=== PATIENT | female | born 2000 | race Caucasian/White ===

== ENCOUNTER 2021-02-26 07:39 | Outpatient (CLI) | payer BC ==
--- NOTE | 2021-02-26 10:20 | Ultrasound Report ---
PROCEDURE: Abdomen Complete INDICATIONS: EPIGASTRIC PAIN TECHNIQUE: Real-time scanning was performed of the abdominal and retroperitoneal organs, with image documentatio n. COMPARISON: None. FINDINGS: Liver: The liver demonstrates normal size. The liver demonstrates mildly increased echogenicity, wh ich limits ultrasound sensitivity for detection of masses. Gallbladder: No gallstones or significant sludge can be seen. The gallbladder wall does not appear th ickened. There is no specific pericholecystic fluid. The sonographic Valencia's sign is negative. Biliary ducts: Intrahepatic bile ducts are non-dilated. Extrahepatic bile duct caliber measures 4 m m. Normal is 6-7 mm or less in diameter, or 10 mm or less post-cholecystectomy. Pancreas: Visualized portions of the pancreas are sonographically normal. Spleen: Spleen is normal in size and homogeneous in echotexture. Kidneys: Kidneys are normal in size and echotexture. Right kidney measures 11 cm long; left kidney measures 10 cm long. No hydronephrosis or nephrolithiasis. No solid masses. Aorta: Visualized aorta is normal in caliber at less than 3 cm. Iliacs: Proximal common iliac arteries are normal in caliber at less than 2.5 cm. IVC: Intrahepatic inferior vena cava is patent. Miscellaneous: No free abdominal fluid. IMPRESSION: The gallbladder demonstrates a normal sonographic appearance. No biliary dilatation is seen. Increased liver echogenicity is seen. This is nonspecific, yet it is most commonly attributed to fatt y infiltration. Reviewed by: Chadwick Worthy MD on 02/26/2021 9:19 AM HENRRY Approved by: Chadwick Worthy MD on 02/26/2021 9:19 AM HENRRY Station ID: [id number]
== END 2021-02-26 07:40 | disposition home or self-care (01) ==
LOC: DI 07:39
PROVIDERS: ATTEND Physician Assistant Medical
DX: R10.13 Epigastric pain (principal); R11.2 Nausea with vomiting, unspecified

== ENCOUNTER 2023-11-17 23:11 | Emergency (ER) | payer BC, MEDICAID ==
--- NOTE | 2023-11-17 23:22 | ED Physician Documentation ---
PD HPI HEENT - Stated complaint Stated Complaint: RT EAR PX - Chief complaint Chief Complaint: Heent - History obtained from History obtained from: Patient, Family - Additional information Additional information: The patient comes to the emergency department chief complaint of right ear pain for the last few days but worse today. The patient states it was so bad she had to leave work. No fevers or chills. No upper respiratory symptoms otherwise. She has a longstanding history of recurrent ear infections and had tympanostomy tubes when she was younger. The patient denies any drainage from her ear. She states she has a swollen "bump" behind her ear and feels some extension the pain to just anterior to her ear as well. No other complaints at this time. PD PAST MEDICAL HISTORY - Past Medical History Past Medical History: Yes - Past Surgical History Past Surgical History: No - Present Medications Home Medications: Ambulatory Orders Medication Instructions Recorded Confirmed Amoxicillin 500 mg PO TID 7 Days #21 cap 11/17/23 HYDROcod/ACETAM 5/325 [[place] 5/325] 1 - 2 tablet PO Q6H PRN #5 tablet 11/17/23 - Allergies Allergies/Adverse Reactions: Allergies Allergy/AdvReac Type Severity Reaction Status Date / Time diphenhydramine Allergy Hallucinati Verified 11/17/23 23:13 [From Benadryl] ons - Social History Does the pt smoke?: No Smoking Status: Never smoker Does the pt drink ETOH?: No Does the pt have substance abuse?: No - Immunizations Immunizations are current?: Yes - POLST Patient has POLST: No PD ED PE NORMAL - Vitals Vital signs reviewed: Yes - General General: Alert and oriented X 3, No acute distress, Well developed/nourished, Other (The patient is tearful but otherwise in no apparent distress.) - HEENT HEENT: Atraumatic, PERRL, EOMI, Moist mucous membranes, Other (Left tympanic membrane normal. Right ear exam With partially obscured TM secondary to cerumen, but visible portion is erythematous and dull.) - Respiratory Respiratory: No respiratory distress - Derm Derm: Warm and dry - Extremities Extremities: No deformity - Neuro Neuro: Alert and oriented X 3 - Psych Psych: Normal mood, Normal affect Results - Vitals Vitals: Vital Signs - 24 hr 11/17/23 23:13 Temperature 36.8 C Heart Rate 60 Respiratory 16 Rate Blood Pressure 150/90 H O2 Saturation 100 Oxygen O2 Source Room air PD Medical Decision Making - ED course Complexity details: considered differential, d/w patient ED course: The patient had a partial obscuring of her TM secondary to cerumen, but given her history and her current symptoms, I feel she should be treated as acute otitis media. She was given first dose of amoxicillin here in the emergency department, as well as dose of hydrocodone. Prescription for the same was sent to the pharmacy of choice. We have discussed home management of symptoms as well as usual indications for return. Departure - Departure Disposition: Home, Self Care Clinical Impression: Acute otitis media Qualifiers: Otitis media type: suppurative Laterality: right Recurrence: not specified as recurrent Spontaneous tympanic membrane rupture: without spontaneous rupture Qualified Code(s): H66.001 - Acute suppurative otitis media without spontaneous rupture of ear drum, right ear Condition: Stable Instructions: ED Otitis Media Acute Adult Prescriptions: Amoxicillin 500 mg PO TID 7 Days #21 cap HYDROcod/ACETAM 5/325 [[place] 5/325] 1 - 2 tablet PO Q6H PRN #5 tablet PRN Reason: Pain Comments: You have been given first dose of antibiotics tonight and a prescription for the same has been electronically transmitted to the [facility] pharmacy in [place]. Please pick these up in the morning and take all of the antibiotics, as directed, until the course is complete. Forms: PCP List, Activity restrictions
[2023-11-17 23:24] VITALS: BP 150/90; O2SAT 100
[2023-11-17] MEDS: AMOXICILLIN 250 MG CAPSULE PO STA (23:32)
[2023-11-17] MEDS: HYDROcod/ACETAM 5/325 MG TABLET PO STA (23:32)
== END 2023-11-17 23:35 | disposition home or self-care (01) ==
LOC: ED 23:11
DX: H66.001 Acute suppurative otitis media without spontaneous rupture of ear drum, right ear (principal)
CPT/HCPCS: 99282; 99283; A9270

== ENCOUNTER 2023-12-16 09:16 | Emergency (ER) | payer MEDICAID ==
[2023-12-16 09:59] VITALS: BP 119/77; O2SAT 100
--- NOTE | 2023-12-16 10:18 | XRAY Report ---
PROCEDURE: Chest 2V INDICATIONS: cough TECHNIQUE: 2 views of the chest were acquired. COMPARISON: None. FINDINGS: Surgical changes and devices: None. Lungs and pleura: No pleural effusions or pneumothorax. Lungs are clear. Mediastinum: Mediastinal contours appear normal. Heart size is normal. Bones and chest wall: No suspicious bony lesions. Overlying soft tissues appear unremarkable. IMPRESSION: No acute cardiopulmonary process. Reviewed by: Karen Rodriguez MD on 12/16/2023 10:17 AM PDT Approved by: Karen Rodriguez MD on 12/16/2023 10:17 AM PDT Station ID: [id number]
== END 2023-12-16 11:11 | disposition left against medical advice (07) ==
LOC: ED 09:16
DX: Z53.21 Procedure and treatment not carried out due to patient leaving prior to being seen by health care provider (principal)

== ENCOUNTER 2023-12-19 19:31 | Emergency (ER) | payer MEDICAID ==
[2023-12-19 19:54] VITALS: O2SAT 98
[2023-12-19 20:30] VITALS: BP 161/10
--- NOTE | 2023-12-19 20:48 | ED Physician Documentation ---
History of Present Illness - Stated complaint Stated Complaint: ASTHMA ATTACK - Chief complaint Chief Complaint: Resp - History obtained from History obtained from: Patient - Additonal information Additional information: 23yF with pmh mild intermittent asthma p/w tight chest and soa tonight. patient states she normally uses her inhaler before bed but ran out a week ago. no pcp. just got insurance. denies fever, uri symptoms. 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[employer]IC: Ovarian cancer Musculoskeletal: Other Other Past Medical History: liver disease - Past Surgical History Past Surgical History: Yes HEENT: Myringotomy (tubes), Tonsil/Adenoidectomy - Present Medications Home Medications: Ambulatory Orders Medication Instructions Recorded Confirmed Etonogestrel [Nexplanon] 11/17/23 Albuterol Sulf [Ventolin Hfa 2 inh INH PRN PRN 12/16/23 12/16/23 Inhaler] Albuterol Sulf [Ventolin Hfa 1 - 2 puffs INH Q4HR PRN #18 gm 12/19/23 Inhaler] Fluticasone/Salmeterol [Advair 1 each IH BID 12/19/23 12/19/23 100-50 Diskus] - Allergies Allergies/Adverse Reactions: Allergies Allergy/AdvReac Type Severity Reaction Status Date / Time diphenhydramine Allergy Hallucinati Verified 12/16/23 09:45 [From Benadryl] ons - Social History Does the pt smoke?: No Smoking Status: Never smoker Does the pt drink ETOH?: No Does the pt have substance abuse?: No - Immunizations Immunizations are current?: Yes - POLST Patient has POLST: No PD ED PE NORMAL - Vitals Vital signs reviewed: Yes - General General: Alert and oriented X 3, No acute distress, Well developed/nourished - HEENT HEENT: Atraumatic, PERRL, EOMI - Neck Neck: Supple, no meningeal sign - Cardiac Cardiac: RRR - Respiratory Respiratory: No respiratory distress, Clear bilaterally, Other (scant end expiratory wheezing lower lung [place]. no increased work of breathing) Results - Vitals Vitals: Vital Signs - 24 hr 12/19/23 12/19/23 19:48 19:52 Temperature 36.7 C 36.7 C Heart Rate 90 90 Respiratory 15 15 Rate Blood Pressure 161/100 H 161/10 H O2 Saturation 98 98 Oxygen O2 Source Room air PD Medical Decision Making - ED course ED course: 23yF p/w mild simple asthma exacerbation, improving s/p neb. also requesting med refill which was provided. return precautions given. pcp referral provided. Departure - Departure Disposition: Home, Self Care Clinical Impression: Asthma Condition: Stable Instructions: Asthma Dc Prescriptions: Albuterol Sulf [Ventolin Hfa Inhaler] 1 - 2 puffs INH Q4HR PRN #18 gm PRN Reason: Shortness Of Air/Wheezing Comments: You were seen in the ED for asthma. Prescription sent electronically to [facility] pharmacy in [place]. Please follow up with a primary care provider (referral list provided) and return to the ED if you have new or worsening symptoms or other concern. Forms: PCP List
[2023-12-19] MEDS: ALBUTEROL NEB 2.5 MG/3 ML INH STA (21:07)
== END 2023-12-19 21:44 | disposition home or self-care (01) ==
LOC: ED 19:31
DX: J45.901 Unspecified asthma with (acute) exacerbation (principal)
CPT/HCPCS: 94640; 99283; 99284

== ENCOUNTER 2024-01-02 15:32 | Emergency (ER) | payer MEDICAID ==
[2024-01-02 15:41] VITALS: BP 160/90
--- NOTE | 2024-01-02 15:46 | ED Physician Documentation ---
History of Present Illness - Stated complaint Stated Complaint: SOA,ASTHMA ATTACK - Chief complaint Chief Complaint: Resp - History obtained from History obtained from: Patient - Additonal information Additional information: 23-year-old woman with asthma. She does have to use her albuterol inhaler every day. States is supposed to be on Advair but has not filled the prescription. Asthma attack started 20 minutes ago. There is no specific trigger that she recalls. She has had a productive cough for the last week or 2 with blood- tinged to it as well. 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 Musculoskeletal: Other - Past Surgical History Past Surgical History: Yes HEENT: Myringotomy (tubes), Tonsil/Adenoidectomy - Present Medications Home Medications: Ambulatory Orders Medication Instructions Recorded Confirmed Etonogestrel [Nexplanon] 11/17/23 Albuterol Sulf [Ventolin Hfa 2 inh INH PRN PRN 12/16/23 12/16/23 Inhaler] Albuterol Sulf [Ventolin Hfa 1 - 2 puffs INH Q4HR PRN #18 gm 12/19/23 Inhaler] Fluticasone/Salmeterol [Advair 1 each IH BID 12/19/23 12/19/23 100-50 Diskus] Albuterol 2.5 mg INH Q4H PRN #30 ml 01/02/24 Albuterol Sulf [Ventolin Hfa 1 - 2 puffs INH Q4HR PRN #1 each 01/02/24 Inhaler] Fluticasone/Salmeterol [Advair 1 each IH BID #3 each 01/02/24 250-50 Diskus] Nebulizer and Compressor 1 each ONCE #1 ea 01/02/24 [Compressor Nebulizer System] predniSONE [Deltasone] 20 mg PO [id number] #21 tab 01/02/24 - Allergies Allergies/Adverse Reactions: Allergies Allergy/AdvReac Type Severity Reaction Status Date / Time diphenhydramine Allergy Hallucinati Verified 01/02/24 15:37 [From Benadryl] ons - Social History Does the pt smoke?: No Smoking Status: Never smoker Does the pt drink ETOH?: No Does the pt have substance abuse?: No - Immunizations Immunizations are current?: Yes - POLST Patient has POLST: No PD ED PE NORMAL - Vitals Vital signs reviewed: Yes - General General: Alert and oriented X 3, No acute distress - Respiratory Respiratory: Other (She speaking full sentences but mildly labored breathing. Diminished breath sounds throughout with moderate air motion and expiratory wheezes.) - Extremities Extremities: No edema, No calf tenderness / cord - Neuro Neuro: Alert and oriented X 3, Normal speech Results - Vitals Vitals: Vital Signs - 24 hr 01/02/24 01/02/24 01/02/24 15:37 15:56 16:13 Temperature 36.8 C Heart Rate 130 H 125 H 105 H Respiratory 24 18 19 Rate Blood Pressure 160/90 H O2 Saturation 98 01/02/24 16:14 Temperature Heart Rate 117 H Respiratory 21 Rate Blood Pressure O2 Saturation 95 Oxygen O2 Source Room air - Rads (name of study) Single view chest x-ray is unremarkable Relevant Findings:: Final report received, EMP independent interpretation of test PD Medical Decision Making - ED course ED course: 23-year-old woman with poorly controlled asthma. She is using her rescue inhaler multiple times a day and is not on any adjunctive medicines although was supposed to be on Advair presents with an exacerbation. After an initial DuoNeb she was feeling better but still fairly wheezy and this was followed by double/5 mg albuterol neb after which she was feeling much better. On reexamination she still with mild expiratory wheezes but excellent air motion. Departure - Departure Disposition: 01 Home, Self Care Clinical Impression: Asthma Qualifiers: Asthma severity: moderate Asthma persistence: persistent Asthma complication type: with acute exacerbation Qualified Code(s): J45.41 - Moderate persistent asthma with (acute) exacerbation Condition: Good Record reviewed to determine appropriate education?: Yes Instructions: Asthma Dc Prescriptions: Albuterol Sulf [Ventolin Hfa Inhaler] 1 - 2 puffs INH Q4HR PRN #1 each PRN Reason: Shortness Of Air/Wheezing Fluticasone/Salmeterol [Advair 250-50 Diskus] 1 each IH BID #3 each Albuterol 2.5 mg INH Q4H PRN #30 ml PRN Reason: Wheezing Nebulizer and Compressor [Compressor Nebulizer System] 1 each MC ONCE #1 ea predniSONE [Deltasone] 20 mg PO [id number] #21 tab Comments: .I sent your prescriptions electronically to [facility] in [place]. You do not need any more prednisone today as he had a dose here. Call your doctor to arrange a follow-up appointment, make the next available appointment. In the interim, return anytime if worse or if new symptoms develop. Forms: PCP List
[2024-01-02] MEDS: IPRATROPIUM/ALBUTEROL 3 ML NEB INH STA (15:54)
[2024-01-02] MEDS: predniSONE 20 MG TABLET PO STA (16:11)
--- NOTE | 2024-01-02 16:12 | XRAY Report ---
PROCEDURE: Chest 1V INDICATIONS: cough TECHNIQUE: One view of the chest was acquired. COMPARISON: Chest x-ray 12/16/2023 FINDINGS: Surgical changes and devices: None. Lungs and pleura: No pleural effusions or pneumothorax. Lungs are clear. Mediastinum: Mediastinal contours appear normal. Heart size is normal. Bones and chest wall: No suspicious bony lesions. Overlying soft tissues appear unremarkable. IMPRESSION: No acute cardiopulmonary process. Reviewed by: Karen Rodriguez MD on 01/02/2024 4:11 PM PDT Approved by: Karen Rodriguez MD on 01/02/2024 4:11 PM PDT Station ID: [id number]
[2024-01-02] MEDS ORDERED: ALBUTEROL NEB 2.5 MG/3 ML INH ONE (16:30)
[2024-01-02] MEDS: ALBUTEROL NEB 2.5 MG/3 ML INH STA (16:30)
[2024-01-02 17:05] VITALS: O2SAT 98
== END 2024-01-02 17:02 | disposition home or self-care (01) ==
LOC: ED 15:32
DX: J45.41 Moderate persistent asthma with (acute) exacerbation (principal); Z85.43 Personal history of malignant neoplasm of ovary; Z79.899 Other long term (current) drug therapy
CPT/HCPCS: 71045; 94640; 99283; 99284; J7512